=== PATIENT | male | born 1950 | race Caucasian/White ===

== ENCOUNTER → 2020-09-13 09:15 | Outpatient (BNVA) | payer MEDICARE, SELFPAY | PROVIDERS: PCP Internal Medicine; Referring Provider Internal Medicine; Visit Provider Urology | DX: E29.1 Testicular hypofunction (principal); M85.80 Other specified disorders of bone density and structure, unspecified site; C61 Malignant neoplasm of prostate | CPT/HCPCS: 99212; Q3014 ==

== ENCOUNTER → 2021-03-27 11:13 | Outpatient (BNVA) | payer MEDICARE, SELFPAY | PROVIDERS: PCP Internal Medicine; Visit Provider Urology | DX: M85.80 Other specified disorders of bone density and structure, unspecified site (principal); C61 Malignant neoplasm of prostate; E29.1 Testicular hypofunction | CPT/HCPCS: Q3014 ==

== ENCOUNTER → 2021-12-11 13:39 | Outpatient (BNVA) | payer MEDICARE, SELFPAY | PROVIDERS: PCP Internal Medicine; Visit Provider Urology | DX: C61 Malignant neoplasm of prostate (principal); M85.80 Other specified disorders of bone density and structure, unspecified site; E29.1 Testicular hypofunction | CPT/HCPCS: Q3014 ==

== ENCOUNTER → 2022-06-14 14:41 | Outpatient (BNVA) | payer MEDICARE, SELFPAY | PROVIDERS: PCP Internal Medicine; Visit Provider Urology | DX: C61 Malignant neoplasm of prostate (principal); E29.1 Testicular hypofunction; N52.9 Male erectile dysfunction, unspecified; M85.80 Other specified disorders of bone density and structure, unspecified site; I10 Essential (primary) hypertension | CPT/HCPCS: 99212 ==

== ENCOUNTER → 2022-12-17 11:06 | Outpatient (BNVA) | payer MEDICARE, SELFPAY | PROVIDERS: PCP Internal Medicine; Visit Provider Urology | DX: C61 Malignant neoplasm of prostate (principal); E29.1 Testicular hypofunction | CPT/HCPCS: Q3014 ==

== ENCOUNTER 2023-07-17 13:50 | Outpatient (AMB) | payer MEDICARE, SELFPAY ==
--- NOTE | 2023-07-17 13:54 | MHC.OFFVIS ---
Intake Intake Visit Reasons: 6m/PSA(set) Intake Note: Patient is Present for Telephone Follow Up PSA Urology Med: None Antibiotic Allergy: None Blood Thinner: Eliquis Allergies No Known Allergies Allergy (Verified 07/17/23 13:55) Medication List - Last Reconciled 07/17/23 by Kwaku Rodríguez MD albuterol sulfate 90 mcg/actuation 0 mcg inhalation amlodipine 2.5 mg PO DAILY amlodipine 5 mg PO DAILY amlodipine 10 mg PO DAILY apixaban (Eliquis) 5 mg PO BID apixaban (Eliquis) 2.5 mg PO BID atorvastatin 20 mg PO DAILY dorzolamide-timolol 22.3-6.8 mg/mL 1 drp ophthalmic (eye) BID furosemide 40 mg PO DAILY hydrochlorothiazide 25 mg PO DAILY lisinopril 20 mg PO DAILY lisinopril-hydrochlorothiazide 20-25 mg 1 tab PO DAILY metoprolol succinate ER 100 mg PO DAILY travoprost 0.004% 1 drp ophthalmic (eye) BEDTIME HPI HPI Comments History of Present Illness Details Venkatesh Bee is a very pleasant male. He is a patient of Dr. Cota. He is seen for the following urologic issues. -Prostate cancer -Erectile dysfunction -Gynecomastia Telemedicine Evaluation 15 min Consultation Doximity Etelvina Video attempted Had episode of discolored urination. Improved with hydration PSA remaining undetectable Will move to yearly evaluation Prostate cancer: Roshan 6, prostatectomy 2000, rising PSA 2016 intermittent hormones Prostate cancer was diagnosed 2000. Diagnosis was reached by needle biopsy, for elevated PSA. The [place] grade is 3+3 = 6 TNM Classification of Malignant Tumours (TNM) T1c. The D'Melissa (NCCN) risk category is Low Risk (PSA< 10, Gl < 7, T1c). Initial therapy included Primary treatment, Prostatectomy (RRP/Robotic), Additional treatment, Observation, Additional treatment, Hormonal Blockade - Continuous 2011 Additional treatment, Jul 2015 - Hormonal Blockade - Intermittent Therapy for metastatic/CRPC included GnRH agonist Recent labs included October 2015 a PSA 0.3, a testosterone, < 20 ng/dL, Jan 2016 , a PSA < 0.1, a testosterone, < 20 ng/dL, May 2016 , a PSA , < 0.1, a testosterone, < 20 ng/dL, Sep 2016 , a PSA , < 0.1, a testosterone 20 Mar 2017, , a PSA , < 0.1, a testosterone 28 08/10 , a PSA (prostate-specific antigen), < 0.1, a testosterone 49, 02/07 , a PSA (prostate-specific antigen), < 0.1, T 54, 08/11 , a PSA (prostate-specific antigen), < 0.1, T 49, 01/08 , a PSA (prostate-specific antigen) < 0.1, T 72 08/12 < 0.1, T 60, 02/09 < 0.1, T 65, 09/10 <0.1, T 72, 03/13 <0.1, 12/12 <0.1, 06/13 <0.1, 12/13 <0.1, 06/14 <0.1 Recent imaging included October 2015 , a DEXA scan, showing osteopenia/osteoporosis 12/09 DEXA - osteopenia, DEXA 02/10 - no osteopenia Associated conditions erectile dysfunction Yes Therapeutic plan: Continue with surveillance imaging and labs [facility] Medical History Melanoma Glaucoma OA (osteoarthritis) Osteopenia HTN (hypertension) Hypogonadism male Erectile dysfunction Prostate cancer Surgical History History of colonoscopy History of left hip replacement Review of Systems Const All systems reviewed & are unremarkable except as noted in HPI and below Reports no additional complaints Resp Reports no additional complaints GI Reports no additional complaints Reports as per HPI Musc Reports no additional complaints Physical Exam Telemedicine evaluation Appropriate responses Regular breathing rate and rhythm HEENT Head: Yes normal to inspection Ears: hearing grossly normal bilaterally Eyes General: appearance normal, both eyes and all related structures Neck Neck: Yes normal visual inspection Chest Chest palpation & inspection: normal inspection of the chest Resp Effort & Inspection: normal respiratory effort and able to speak in complete sentences Assessment & Plan Assessment & Plan (1) Prostate cancer: Code(s): C61 - Malignant neoplasm of prostate (2) Hypogonadism male: Code(s): E29.1 - Testicular hypofunction Plan Twelve month follow-up Orders: Orders Prostate Specific Antigen 364 Days C61 - Malignant neoplasm of prostate Patient Instructions: Imaging studies, laboratory and physical exam results were discussed and reviewed in detail. No major barriers to patient understanding were identified. An opportunity to ask questions regarding the treatment plan was provided. All questions were answered. The patient expressed understanding and agreement with the above treatment plan. The patient is aware they should contact our office by phone for worsening of their current condition or the appearance of new urologic symptoms. Compliance is encouraged with any medications and followup testing that is ordered. It is a privilege to participate in the urologic care of your patient. If you have any questions or concerns regarding treatment for the above conditions, or other urologic issues, please do not hesitate to contact me. The office telephone contact is [phone]. This note is constructed using voice recognition software. While every effort has been made to ensure accuracy transcription coordinator errors may have been included. Yours sincerely, Dr Kwaku Rodríguez MD, [facility] - Urology Providers of Expert, Compassionate Care for the Genitourinary System Telehealth Telehealth Location of provider rendering services: practice address Location of patient: address on file Patient Identification confirmed using: Name, : Yes Telehealth method: video Patient verbally consented to treatment: Yes Patient verbally consented to billing insurance company: Yes Patient informed of any privacy concerns related to visit: Yes Coding Level of Care Code Tele Est Pt Level 4 (92685) Diagnoses Prostate cancer C61 Hypogonadism male E29.1
== END 2023-07-17 15:07 | disposition home or self-care (01) ==
LOC: HO.HUSH 13:50
PROVIDERS: PCP Internal Medicine; Visit Provider Urology
DX: C61 Malignant neoplasm of prostate (principal); E29.1 Testicular hypofunction
CPT/HCPCS: 99213

== ENCOUNTER → 2023-07-17 13:50 | Outpatient (BNVA) | payer MEDICARE, SELFPAY | PROVIDERS: PCP Internal Medicine; Visit Provider Urology ==

== ENCOUNTER 2024-07-13 09:06 | Outpatient (AMB) | payer MEDICARE, SELFPAY ==
--- NOTE | 2024-07-13 09:11 | A.OFFVIS_ITS ---
Intake Visit Reasons: 1Y PSA(Set) Intake Note: Patient is Present for 1Y Follow Up PSA Urology Med: None Antibiotic Allergy: None Blood Thinner: [email or web address] Techn[employer] Required: No Allergies No Known Allergies Allergy (Verified 07/13/24 09:11) HPI Comments Details: Venkatesh Bee is a very pleasant male. He is a patient of Dr. Cota. He is seen for the following urologic issues. -Prostate cancer -Erectile dysfunction -Gynecomastia Yearly evaluation On Eliquis PSA stable No repeat of hematuria Prostate cancer: Roshan 6, prostatectomy 2000, rising PSA 2015 intermittent hormones Prostate cancer was diagnosed 2000. Diagnosis was reached by needle biopsy, for elevated PSA. The [place] grade is 3+3 = 6 TNM Classification of Malignant Tumours (TNM) T1c. The D'Melissa (NCCN) risk category is Low Risk (PSA< 10, Gl < 7, T1c). Initial therapy included Primary treatment, Prostatectomy (RRP/Robotic), Additional treatment, Observation, Additional treatment, Hormonal Blockade - Continuous 2011 Additional treatment, Jul 2015 - Hormonal Blockade - Intermittent Therapy for metastatic/CRPC included GnRH agonist Recent labs included October 2015 a PSA 0.3, a testosterone, < 20 ng/dL, Jan 2016 , a PSA < 0.1, a testosterone, < 20 ng/dL, May 2016 , a PSA , < 0.1, a testosterone, < 20 ng/dL, Sep 2016 , a PSA , < 0.1, a testosterone 20 Mar 2017, , a PSA , < 0.1, a testosterone 28 08/10 , a PSA (prostate-specific antigen), < 0.1, a testosterone 49, 8 , a PSA (prostate-specific antigen), < 0.1, T 54, 2 , a PSA (prostate- specific antigen), < 0.1, T 49, 7 , a PSA (prostate-specific antigen) < 0.1, T 72 2 < 0.1, T 60, 8 < 0.1, T 65, 09/10 <0.1, T 72, 03/13 <0.1, 12/12 <0.1, 06/13 <0.1, 12/13 <0.1, 06/14 <0.1, 06/15 <0.1 Recent imaging included October 2015 , a DEXA scan, showing osteopenia/osteoporosis 12/09 DEXA - osteopenia, DEXA 02/10 - no osteopenia Associated conditions erectile dysfunction Yes Therapeutic plan: Continue with surveillance imaging and labs [facility] Medical History Melanoma Glaucoma OA (osteoarthritis) Osteopenia HTN (hypertension) Hypogonadism male Erectile dysfunction Prostate cancer Surgical History History of colonoscopy History of left hip replacement Review of Systems Const Denies chills and Denies fever(s) Card Reports no additional complaints and Denies syncope Resp Denies cough GI Denies abdominal pain and Denies heartburn Reports as per HPI and Denies change in libido Neuro Denies syncope Psych Denies change in libido Endo Denies change in libido Physical Exam Const General: cooperative, healthy appearing, comfortable and no acute distress Orientation/consciousness: patient oriented x3 HEENT Face and sinus: Yes normal facial exam Mouth: moist mucous membranes Neck Neck: Yes normal visual inspection, Yes full ROM and Yes trachea midline Chest Chest palpation & inspection: normal inspection of the chest Resp Effort & Inspection: normal respiratory effort, able to speak in complete sentences and no respiratory distress GI Inspection: Yes normal to inspection Back/Spine/Pelvis Cervical Spine: normal cervical lordosis Thoracic/Lumbar Spine: thoracic and lumbar spine normal to inspection Skin General skin exam: no rashes or lesions noted Neuro General: patient oriented x3, gait normal, tone normal and moves all extremities Extrem General: Yes normal to inspection and Yes capillary refill normal Assessment & Plan Assessment & Plan (1) Prostate cancer: Code(s): C61 - Malignant neoplasm of prostate Category: Medical (2) Hypogonadism male: Code(s): E29.1 - Testicular hypofunction Category: Medical (3) Osteopenia: Code(s): M85.80 - Other specified disorders of bone density and structure, unspecified site Category: Medical Plan Twelve month follow-up G Code G2211 Has been applied in accordance with CMS guidelines ( Medicare and Medicaid programs; 2023 Payment Policies ) to convey the inherent complexity in ongoing patient care within the urology clinic. This deliberate utilization aligns with the visits complexity associated with medical care services serving as a focal point for necessary healthcare, addressing the patient's singular serious or complex condition. This judicious use ensure was appropriate reimbursement, especially in the context of managing such conditions within our specialized, longitudinal urologic practice. This patient has a complex and chronic urologic condition that requires longitudinal follow-up. [facility], Medicare and Medicaid programs; 2023 Payment Policies Fed. Reg 88 (91): [id number] (Jan.272022) Orders: Orders Prostate Specific Antigen 364 Days C61 - Malignant neoplasm of prostate Patient Instructions: Imaging studies, laboratory and physical exam results were discussed and reviewed in detail. No major barriers to patient understanding were identified. An opportunity to ask questions regarding the treatment plan was provided. All questions were answered. The patient expressed understanding and agreement with the above treatment plan. The patient is aware they should contact our office by phone for worsening of their current condition or the appearance of new urologic symptoms. Compliance is encouraged with any medications and followup testing that is ordered. It is a privilege to participate in the urologic care of your patient. If you have any questions or concerns regarding treatment for the above conditions, or other urologic issues, please do not hesitate to contact me. The office telephone contact is [phone]. This note is constructed using voice recognition software. While every effort has been made to ensure accuracy principal java developer errors may have been included. Yours sincerely, Dr Kwaku Rodríguez MD, [facility] - Urology Providers of Expert, Compassionate Care for the Genitourinary System Coding Level of Care Code Est Pt Level 4 (21479) Complex EM visit Add On G2211 Diagnoses Prostate cancer C61 Hypogonadism male E29.1 Osteopenia M85.80
--- OUTSIDE RECORDS SUMMARY | 2024-07-13 09:38 | XMS_ITS | Continuity of Care Document ---
Author Organization [facility], Main Office Address [address] [facility] [address] [place] [address] Care Team Providers Care Treating Inspector Name Role Phone NAREN COTA Primary Care Provider LINDA MALIK Ruby [employer] Rails Software Developer CAROLYNN MURPHY Urologist ALEX VIDAL Medical Oncologist [phone] JACKY TINEO Criminal Psychologist CAROLYNN CHOU Orthopedic Surgeon [phone] ROMANA AJ Aging Room Hand ANAI GUZMAN Customer Retention Representative PK PRADHAN Cultural Centre Manager Assessment No assessment recorded. Plan of Treatment Reminders Order Date Submit Date Provider Last Modified By Organization Details Last Modified Time Details Appointments AWV30 2024 09:15A M Naren galindo MD Not available Not available Not available Lab CMP, serum or plasma 2023 024 [place], [address] [facility], [facility] [address], [place], [address], 06/04/2024 06:08:29 Referral None recorde d. Procedures None recorde d. Surgeries None recorde d. Imaging None recorde d. Medication Orders metopro lol succina te ER 100 mg tablet, extende d release 24 hr 2023 024 [id number], [address] [facility], [place], [address], 06/03/2024 09:03:17 amlodip ine 10 mg-vals romulo 320 mg tablet 2023 024 gina [facility], [address] [place], [address], 06/03/2024 09:03:17 Patient TargetsNo targets recorded. Patient Instructions Encounter Date Encounter Id Patient Instructions Last Modified By Organization Details Last Modified Time 06/03/2024 [id number] high cholesterol: care instructions gina Not available 06/03/2024 09:14:58 Reason for Referral None Reported. Problems Name Problem SNOMED Code Status Onset Date Resolution Date Notes Provider Name and Address Organization Details Recorded Time Electroc kydiogra m abnormal [id number] Completed 201301/11/2014 RECORDED 08/11/19 14 8:51AM BY ЮЛИЯ RENEE ON/STANISLAW galindo MD [address] [address], [place], [address], [facility] 6 09:56:10 Patient status finding [id number] Completed 201304/18/2014 RECORDED 10/15/19 14 9:33AM BY JERRICA ESPINAL I, OFFICE VISIT Naren galindo MD [address] [place], [address], [facility] 6 09:56:10 Neck pain 42744323 Completed 200801/11/2014 RECORDED 03/21/20 09 8:59AM BY ЮЛИЯ AGUIRRE ON/STANISLAW galindo MD [address] [place], [address], [facility] 6 09:56:10 Walking disabili ty 265016041 Completed 201301/11/2014 RECORDED 10/15/19 14 9:31AM BY ЮЛИЯ RENEE ON/STANISLAW galindo MD [address] [place], [address], [facility] 6 09:56:10 Impotenc e of organic origin Active PHUONG Garvin, [facility] 1 16:03:52 History of Malignan t melanoma 817894905 Active 1994 back of neck; sees derm PHUONG Garvin, [facility] 1 16:03:52 History of malignan t neoplasm of prostate 518868310 Active 2001 [place], stage 3. radical prostate ctomy in 2001 then monitori ng and increasi ng PSA led to hormone therapy in 2014. PHUONG Garvin, [facility] 1 16:03:52 Pure hypercho lesterol emia 530225236 Completed 10/21/2016 on a statin Naren galindo MD [address] [address], [place], [address], [facility] 7 10:13:08 Hypercho lesterol emia 38896061 Completed 200901/11/2014 RECORDED 09/22/19 10 9:28AM BY EDWARDO NGUYEN MA, ANNOTATI ON/ADDEN DUM Naren galindo MD [address] [address], [place], [address], [facility] 6 09:56:10 Essentia l hyperten ashley 98601847 Completed 200901/11/2014 RECORDED 09/22/19 10 9:29AM BY EDWARDO NGUYEN MA, ANNOTATI ON/ADDEN DUM [facility] 3 18:19:11 Hypokale mustapha 27508058 Active 2020 PHUONG Garvin, [facility] 1 16:03:52 Laborato ry procedur e performe d 838858909 Completed 201301/11/2014 RECORDED 10/15/19 14 9:31AM BY ЮЛИЯ RENEE ON/STANISLAW galindo MD [address] [facility] [address], [place], [address], [facility] 6 09:56:10 Pain in limb 76105425 Completed 201101/11/2014 RECORDED 04/08/20 12 8:57AM BY ЮЛИЯ RENEE ON/STANISLAW galindo MD [address] [facility] [address], [place], [address], [facility] 6 09:56:10 Localize d superfic ial swelling of skin 866328083 Completed 200801/11/2014 RECORDED 03/21/20 09 9:00AM BY ЮЛИЯ AGUIRRE ON/STANISLAW galindo MD [address] [facility] [address], [place], [address], [facility] 6 09:56:10 Renewal of prescrip tion Completed 201201/11/2014 RECORDED 10/13/19 13 9:34AM BY ЮЛИЯ RENEE ON/STANISLAW galindo MD [address] [facility] [address], [place], [address], [facility] 6 09:56:10 Fibromyo sitis 49032469 Completed 200801/11/2014 RECORDED 03/21/20 09 8:59AM BY ЮЛИЯ AGUIRRE/STANISLAW galindo MD [address] [facility] [address], [place], [address], [facility] 6 09:56:10 Influenz a vaccine needed 04018705454 06 Completed 201001/11/2014 RECORDED 04/10/20 11 8:41AM BY JERRICA ESPINAL I, OFFICE VISIT Naren galindo MD [address] [facility] [address], [facility] [place], [address], [facility] 6 09:56:10 Disorder of bone and articula r cartilag e 737522104 Active Francy Murillo [place] null, [facility] 1 16:03:52 Immuniza tion refused Completed 201301/11/2014 RECORDED 08/11/19 14 8:51AM BY JERRICA ESPINAL I, ANNOTATI ON/ADDEN DUM Naren galindo MD [address] [facility] [address], [place], [address], [facility] 6 09:56:10 Pre-surg ino evaluati on Completed 201301/11/2014 IMPRESSI ON: HE IS W/O CARDIAC SYMPTOMS BUT HE HAS BEEN UNABLE TO EXERT HIMSELF BECAUSE OF HIS HIP PAIN SO WE WILL GET A NUCLEAR STRESS TEST TO R/O ISCHEMIA BEFORE CLEARING HIM FOR SURGERY. ; RECORDED 08/31/19 14 12:59PM BY DEWAYNE BOX MA, HOMEROATI ON/STANISLAW galindo MD [address] [facility] [address], [place], [address], [facility] 6 09:56:10 Adult health examinat ion Completed 201304/18/2014 RECORDED 10/15/19 14 9:32AM BY JERRICA ESPINAL I, OFFICE VISIT Naren galindo MD [address] [facility] [address], [place], [address], [facility] 6 09:56:10 Adult health examinat ion Completed 201101/11/2014 RECORDED 04/08/20 12 8:57AM BY JERRICA ESPINAL I ANNOTATI ON/STANISLAW galindo MD [address] [address], [place], [address], [facility] 6 09:56:10 Screenin g for malignan t neoplasm of colon Completed 200801/11/2014 RECORDED 09/09/19 09 8:31AM BY ЮЛИЯ BROCK ON/STANISLAW galindo MD [address], [place], [address], [facility] 6 09:56:10 Electroc ardiogra m abnormal [id number] Completed 201301/31/2014 RECORDED 08/11/19 14 8:51AM BY ЮЛИЯ RENEE ON/STANISLAW galindo MD [address], [place], [address], [facility] 6 09:56:10 Neck pain 00434090 Completed 200801/31/2014 RECORDED 03/21/20 09 8:59AM BY ЮЛИЯ AGUIRRE ON/STANISLAW galindo MD [address] [facility] [address], [place], [address], [facility] 6 09:56:10 Walking disabili ty 567535079 Completed 201301/31/2014 RECORDED 10/15/19 14 9:31AM BY ЮЛИЯ RENEE ON/STANISLAW galindo MD [address], [place], [address], [facility] 6 09:56:10 Hypercho lesterol emia 75214188 Completed 200901/31/2014 RECORDED 09/22/19 10 9:28AM BY EDWARDO NGUYEN MA, ЮЛИЯ ON/STANISLAW galindo MD [address] [facility] [address], [place], [address], [facility] 6 09:56:10 Laborato ry procedur e performe d 884636378 Completed 201301/31/2014 RECORDED 10/15/19 14 9:31AM BY ЮЛИЯ RENEE ON/STANISLAW galindo MD [address] [facility] [address], [place], [address], [facility] 6 09:56:10 Pain in limb 98968298 Completed 201101/31/2014 RECORDED 04/08/20 12 8:57AM BY ЮЛИЯ RENEE ON/STANISLAW galindo MD [address] [facility] [address], [place], [address], [facility] 6 09:56:10 Localize d superfic ial swelling of skin 049293901 Completed 200801/31/2014 RECORDED 03/21/20 09 9:00AM BY ЮЛИЯ AGUIRRE ON/STANISLAW galindo MD [address] [facility] [address], [place], [address], [facility] 6 09:56:10 Renewal of prescrip tion Completed 201201/31/2014 RECORDED 10/13/19 13 9:34AM BY ЮЛИЯ RENEE/STANISLAW galindo MD [address] [facility] [address], [place], [address], [facility] 6 09:56:10 Fibromyo sitis 65273700 Completed 200801/31/2014 RECORDED 03/21/20 09 8:59AM BY ЮЛИЯ AGUIRRE ON/STANISLAW galindo MD [address] [facility] [address], [place], [address], [facility] 6 09:56:10 Influenz a vaccine needed 20463191883 06 Completed 201001/31/2014 RECORDED 04/10/20 11 8:41AM BY JERRICA ESPINAL I, OFFICE VISIT Naren galindo MD [address], [place], [address], [facility] 6 09:56:10 Immuniza tion refused Completed 201301/31/2014 RECORDED 08/11/19 14 8:51AM BY JERRICA ESPINAL I, HOMEROATI ON/ADDEN DUM Naren galindo MD [address], [place], [address], [facility] 6 09:56:10 Pre-surg ino evaluati on Completed 201301/31/2014 IMPRESSI ON: HE IS W/O CARDIAC SYMPTOMS BUT HE HAS BEEN UNABLE TO EXERT HIMSELF BECAUSE OF HIS HIP PAIN SO WE WILL GET A NUCLEAR STRESS TEST TO R/O ISCHEMIA BEFORE CLEARING HIM FOR SURGERY. ; RECORDED 08/31/19 14 12:59PM BY DEWAYNE BOX MA, ЮЛИЯ ON/STANISLAW galindo MD [address], [place], [address], [facility] 6 09:56:10 Screenin g for malignan t neoplasm of colon Completed 200801/31/2014 RECORDED 09/09/19 09 8:31AM BY ЮЛИЯ BROCK ON/STANISLAW galindo MD [address], [place], [address], [facility] 6 09:56:10 Glaucoma 84632805 Active using drops PHUONG Garvin, [facility] 1 16:03:52 Advance directiv e discusse d with patient 447337739 Active PHUONG Garvin, [facility] 1 16:03:52 Morbid obesity 081267561 Active PHUONG Garvin, [facility] 1 16:03:52 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 PHUONG Garvin, [facility] 1 16:03:52 Hyperlip idemia 32794318 Active 2016 Naren galindo MD [address] [facility] [address], [place], [address], [facility] 7 10:13:33 Gout 51065538 Active 2016 Naren galindo MD [address] [facility] [address], [place], [address], [facility] 7 09:51:45 Osteopen ia 587378977 Active 2018 PHUONG Garvin, [facility] 1 16:03:52 Pain in right hip joint 26754894535 9102 Active 2019 Seen by ortho. Has advanced OA but no change in quality of life. No surgery for now. PHUONG Garvin, [facility] 1 16:03:52 Basal cell carcinom a of skin 007798780 Active 2019 Followed by CARINA Arellano. Naren galindo MD [address] [facility] [address], [place], [address], [facility] 3 13:06:21 Arthriti s of right hip 43414647111 [address] Active 2019 PHUONG Garvin, [facility] 1 16:03:52 Blood in urine 42727222 Active 2019 PHUONG Garvin, [facility] 1 16:03:52 Hyperten sive renal disease 76813217 Active 2020 Colten Garcia PA-C [address] [facility] [address], [place], [address], [facility] 1 13:43:49 Pulmonar y embolism 99789267 Active 2020 Francy Murillo [place] null, [facility] 1 16:03:52 Edema of lower extremit y 206528828 Active 2020 Francy Murillo [place] null, [facility] 1 16:03:52 Congesti ve heart failure 37827841 Active 2020 Colten Garcia PA-C [address], [place], [address], [facility] 1 13:39:26 Exposure to SARS-CoV -2 Completed 11/14/2020 Removal Reason: Problem added by user dinah kapadia from the COVID-19 watch flag Naren galindo MD [address], [place], [address], [facility] 1 10:12:53 Surveill ance: remote electron ic Active 2021 [facility] SIERRA Mace [address], [place], [address], [facility] 2 08:29:18 Deep venous thrombos is 036910095 Active 2020 Naren galindo MD [address], [place], [address], [facility] 2 08:49:44 Cardiomy opathy 38878801 Active 2021 apical hypertro pic not affectin g EF; followed by cardiolo gy. Children recommen ded to get ECHO's done. Naren galindo MD [address], [place], [address], [facility] 2 08:51:01 Chronic kidney disease stage 2 067473342 Active 2022 Adore Lopezyayo smallwood [facility] 11:24:30 Problem Notes None recorded. Procedures Surgical History Date Name Laterality Status Provider Name and Address Organization Details Recorded Time 12/04/19 24 Advanced Care Planning completed Naren Cota MD [address] [facility] [address], [place], [address], [facility] 12/04/2023 13:08:25 11/21/19 23 Advanced Care Planning completed Naren Cota MD [address] [facility] [address], [place], [address], [facility] 11/20/2022 11:05:40 10/09/19 23 Colonoscopy completed Hailey Leonard [facility] 10/11/2022 14:16:32 09/27/19 22 prosthetic arthroplasty of hip completed Shannon Dunham RN [facility] 09/27/2021 10:52:19 11/15/19 21 Six-Item Cognitive Test completed Francy Murillo MA [facility] 11/14/2020 09:24:43 11/11/19 20 Mini-Cog Test completed Jerrica Villanueva [facility] 11/11/2019 09:22:00 10/30/19 19 Mini-Cog Test completed Jerrica Villanueva [facility] 10/29/2018 09:08:08 10/29/19 18 Mini-Cog Test completed Jerrica Villanueva [facility] 10/28/2017 10:36:20 10/22/19 17 Fall Risk Assessment completed Jerrica Villanueva [facility] 10/21/2016 09:42:13 10/22/19 17 Mini-Cog Test completed Jerrica Villanueva [facility] 10/21/2016 09:42:20 10/19/19 16 Fall Risk Assessment completed Jerrica Villanueva [facility] 10/19/2015 09:36:08 10/19/19 16 Mini-Cog Test completed Jerrica Villanueva [facility] 10/19/2015 09:36:08 10/19/19 16 Advanced Care Planning completed Jerrica Villanueva [facility] 10/19/2015 09:27:17 10/18/19 15 Fall Risk Assessment completed Jerrica Brownanca [facility] 10/17/2014 11:11:13 10/18/19 15 Mini-Cog Test completed Jerrica Villanueva [facility] 10/17/2014 11:11:13 08/17/19 14 Joint Replacement completed Naren Cota MD [address] [facility] [address] [facility] [place], [place], [address], [facility] 11/20/2022 09:51:16 06/23/19 02 Prostate Surgery completed Naren Cota MD [address] [address], [place], [address], [facility] 04/18/2014 09:30:43 06/23/18 91 Other completed Naren Cota MD [address] [facility] [address] [facility] [place] [facility], [place], [address], [facility] 04/18/2014 09:32:14 Imaging Results None recorded. Procedure Notes None recorded. Medical Equipment None Reported. Allergies Allergen ID Allergen Name Allergen Category Reaction Reaction Severity Criticality Documentation Date Start Date Code Code System Note Provider Name and Address Organization Details Recorded Time 44408 lisinopri l medicatio n cough moderate Not available 09/11/20202020 54651 RxNorm PHUONG Kwong, [facility] 2 09:35:47 Medications Name Sig Start Date Stop Date Status Note LastModified by Organization Details LastModified Time travatan z 0.004 % soln 01/18 completed Not Available Not Available Not Available travopros t 0.004 % soln 01/18 completed Not Available Not Available Not Available shingrix 50 mcg/0.5ml susr 01/18 completed Not Available Not Available Not Available metoprolo l succinate er 100 mg tb24 01/18 completed Not Available Not Available Not Available lisinopri l 20 mg tabs 12/05 completed duplicat e Not Available Not Available Not Available metoprolo l succinate er 50 mg tb24 01/18 completed Not Available Not Available Not Available amoxicill in 500 mg caps 01/18 completed Not Available Not Available Not Available atorvasta tin calcium 20 mg tabs 01/18 completed Not Available Not Available Not Available dorzol/ti mol lori 22.3-6.8 01/18 completed Not Available Not Available Not Available lisinop/h ctz tab 20-25mg 01/18 completed Not Available Not Available Not Available celecoxib 200 mg capsule TAKE ONE CAPSULE BY MOUTH EVERY DAY 11/15 completed Not Available Not Available Not Available amoxicill in 500 mg capsule TAKE 4 CAPSULES 1 HOUR BEFORE PROCEDUR E 11/15 completed Not Available Not Available Not Available metolazon e 2.5 mg tablet TAKE ONE TABLET BY MOUTH EVERY OTHER DAY NEEDED 10/05 completed Not Available Not Available Not Available bicalutam mary 50 mg tablet DAILY AT BEDTIME active Not Available Not Available No t Available atorvasta tin 20 mg tablet TAKE ONE TABLET BY MOUTH EVERY DAY active Not Available Not Available No t Available pravastat in 40 mg tablet QD 2007 active RECORDED 03/14/20 08 9:59AM BY NAREN REESE MD, ANNOTATI ON/STANISLAW HASTINGS; Not Available Not Available Not Available metoprolo l succinate ER 50 mg tablet,ex tended release 24 hr TAKE ONE TABLET BY MOUTH EVERY DAY 05/03 completed Not Available Not Available Not Available lisinopri l 20 mg tablet Take 1 tablet every day by oral route for 90 days. 09/11 completed Not Available Not Available Not Available metoprolo l succinate ER 100 mg tablet,ex tended release 24 hr TAKE ONE TABLET BY MOUTH EVERY DAY 2024 active Not Available Not Available Not Avai lable atenolol 50 mg-chlort halidone 25 mg tablet TAKE ONE TABLET(S ) EVERY DAY BY MOUTH 04/28 completed Not Available Not Available Not Available travopros t 0.004 % eye drops INSTILL 1 DROP INTO BOTH EYES ONCE DAILY AT BEDTIME DIRECTED active Not Available Not Available No t Available amlodipin e 2.5 mg tablet TAKE ONE TABLET BY MOUTH EVERY DAY AT BEDTIME 03/19 completed Not Available Not Available Not Available amlodipin e 5 mg tablet TAKE ONE TABLET BY MOUTH EVERY DAY DIRECTED 03/19 completed Not Available Not Available Not Available allopurin ol 100 mg tablet Take 3 tablets every day by oral route for 90 days. 04/28 completed Not Available Not Available Not Available fondapari nux 2.5 mg/0.5 mL subcutane ous solution syringe 10/18 completed Not Available Not Available Not Available peg-elect rolyte solution 420 gram oral solution MIX POWDER WITH WATER ACCORDIN G TO THE PRODUCT LABEL. FOLLOW THE [facility] INSTRUCT IONS STATING WHEN TO DRINK THE PREP FLUID ON THE EVENING B 11/20 completed Not Available Not Available Not Available tramadol 50 mg tablet TAKE 1 TO 2 TABLETS BY MOUTH EVERY 6 HOURS NEEDED FOR MILD PAIN 11/15 completed Not Available Not Available Not Available amoxicill in 500 mg tablet TAKE 4 TABLETS BY MOUTH 1 HOUR BEFORE APPOINTM ENT active Not Available Not Available No t Available oxycodone -acetamin ophen 5 mg-325 mg tablet EVERY FOUR HOURS NEEDED active Not Available Not Available No t Available amoxicill in 875 mg tablet 10/29 completed Not Available Not Available Not Available amlodipin e 10 mg tablet TAKE ONE TABLET BY MOUTH EVERY DAY 06/03 completed Not Available Not Available Not Available cephalexi n 500 mg capsule TAKE ONE CAPSULE BY MOUTH THREE TIMES A DAY FOR 7 DAYS 07/03 completed Not Available Not Available Not Available pantopraz ole 40 mg tablet,de layed release TAKE ONE TABLET BY MOUTH EVERY DAY 11/15 completed Not Available Not Available Not Available simvastat in 20 mg tablet 2007 active RECORDED 12/10/19 08 8:29AM BY NAREN REESE MD, ANNOTATI ON/STANISLAW DUM; Not Available Not Available Not Available erythromy yeimi 5 mg/gram (0.5 %) eye ointment APPLY 1/2 INCH OF OINTMENT TO AFFECTED EYE 4 TIMES DAILY FOR 7 DAYS 07/03 completed Not Available Not Available Not Available Pravachol 20 mg tablet DAILY 12/09 completed RECORDED 12/10/19 08 8:43AM BY EDWARDO I KELLY- WENDY, MA, OFFICE VISIT;NO T TAKING DUE TO MUSCLE ACHES Not Available Not Available Not Available calcium 200 mg (as calcium carbonate 500 mg) chewable tablet DAILY 11/25 completed Not Available Not Available Not Available indometha yeimi 50 mg capsule Take 1 capsule 3 times a day by oral route with meals for 10 days. 12/10 completed Not Available Not Available Not Available hydrochlo rothiazid e 12.5 mg capsule TAKE ONE CAPSULE BY MOUTH EVERY DAY DIRECTED 08/29 completed increase d his dose. Not Available Not Available Not Available betametha sone dipropion ate 0.05 % topical cream APPLY SPARINGL Y TO ECZEMA RASH ON LEG TWO TIMES A DAY FOR 1-2 WEEKS active Not Available Not Available No t Available docusate sodium 100 mg capsule TAKE ONE CAPSULE BY MOUTH TWICE A DAY (TO BE STARTED AFTER SURGERY) 05/21 completed Not Available Not Available Not Available lisinopri l 20 mg-hydroc hlorothia zide 25 mg tablet Take 1 tablet every day by oral route for 90 days. 09/11 completed Not Available Not Available Not Available dorzolami de 22.3 mg-timolo l 6.8 mg/mL eye drops INSTILL ONE DROP INTO BOTH EYES TWO TIMES A DAY active Not Available Not Available No t Available hydrochlo rothiazid e 25 mg tablet TAKE ONE TABLET BY MOUTH EVERY DAY 06/03 completed Not Available Not Available Not Available furosemid e 20 mg tablet TAKE TWO TABLETS BY MOUTH EVERY DAY NEEDED 05/21 completed Not Available Not Available Not Available albuterol sulfate HFA 90 mcg/actua tion aerosol inhaler INHALE TWO PUFFS BY MOUTH EVERY 4 HOURS NEEDED active Not Available Not Available No t Available oxycodone 5 mg tablet TAKE 1 TO 2 TABLETS BY MOUTH EVERY 4 HOURS NEEDED FOR MODERATE PAIN 11/15 completed Not Available Not Available Not Available cholecalc iferol (vitamin D3) 25 mcg (1,000 unit) capsule Take 1 capsule every day by oral route. active Not Available Not Available No t Available Klor-Con M20 mEq tablet,ex tended release active Not Available Not Available Not Available Calcium-5 00 500 mg (as calcium carbonate 1,250 mg) chewable tablet Take 1 tablet every day by oral route. active Not Available Not Available No t Available Cosopt Ocumeter Plus TWO TIMES DAILY 10/18 completed RECORDED 10/15/19 14 9:32AM BY JERRICA ESPINAL I, OFFICE VISIT; Not Available Not Available Not Available Arixtra DAILY 2013 active RECORDED 10/15/19 14 9:32AM BY JERRICA ESPINAL I, OFFICE VISIT;CA ESCRIBED S/P HIP REPLACEM ENT - ORTHO TO FOLLOW Not Available Not Available Not Available Zostavax (PF) 19,400 unit/0.65 mL subcutane ous suspensio n active Not Available Not Available Not Available fenofibra te nanocryst allized 145 mg tablet DAILY TO TREAT HYPERCHO LESTEROL EMIA 06/30 completed RECORDED 06/30/19 13 8:25AM BY NAREN REESE MD, ANNOTATI ON/ADDEN DUM; Not Available Not Available Not Available amlodipin e 5 mg-valsar pineda 160 mg tablet TAKE ONE TABLET BY MOUTH EVERY DAY 06/03 completed Not Available Not Available Not Available amlodipin e 10 mg-valsar pineda 320 mg tablet Take 1 tablet every day by oral route for 90 days, for HTN. 2023 active Not Available Not Available Not Avai lable GaviLyte- G 236 gram-22.7 4 gram-6.74 gram-5.86 gram oral solution 04/28 completed Not Available Not Available Not Available Cosopt (PF) 2 %-0.5 % eye drops in a dropperet te INSTILL 1 DROP INTO AFFECTED EYE(S) BY OPHTHALM IC ROUTE 2 TIMES PER DAY 04/30 completed Not Available Not Available Not Available Eliquis 5 mg tablet TAKE ONE TABLET BY MOUTH TWICE A DAY 04/30 completed Not Available Not Available Not Available Eliquis 2.5 mg tablet TAKE ONE TABLET BY MOUTH TWICE A DAY active Not Available Not Available No t Available potassium chloride ER 20 mEq tablet,ex tended release Take 1 tablet every day by oral route for 7 days. 06/05 completed Not Available Not Available Not Available Fluzone High-Dose 5918-7221 (PF) 180 mcg/0.5 mL intramusc ular syringe 10/28 completed Not Available Not Available Not Available Shingrix (PF) 50 mcg/0.5 mL intramusc ular suspensio n kit VACCINAT ION ADMINIST ERED BY PHARMACI ST 01/18 completed Not Available Not Available Not Available Ramez DVT-PE Treatment 30-Day Starter 5 mg (74 tablets) in dose pack Take 2 tablets twice a day by oral route as directed for 28 days. 10/05 completed Not Available Not Available Not Available Fluad Quad (65yr up)(PF) 60 mcg (15 mcg x 4)/0.5mL IM syringe VACCINAT ION ADMINIST ERED BY PHARMACI ST 05/23 completed Not Available Not Available Not Available Vitals Date Recorded Body height Body mass index (BMI) Body weight Oxygen saturation Oxygen saturation in Arterial blood by Pulse oximetry Heart rate Body temperature Systolic blood pressure Diastolic blood pressure Provider Name and Address Organization Details Last Updated DateTime 4 177.17 cm 39.9 kg/m2 227069. 49 g 96 % 96 % 70 /min 98.1 [degF] 125 mm[Hg] 79 mm[Hg] Sophie Apple MA [facility] 4 08:51:51 Date Recorded Heart rate Systolic blood pressure Diastolic blood pressure Provider Name and Address Organization Details Last Updated DateTime 06/03/2024 55 /min 133 mm[Hg] 73 mm[Hg] Not Available [facility] 06/03/2024 14:38:03 Social History Question Answer Notes LastModified by Organizat ion Details LastModified Time Tobacco Smoking Status Never Smoker Not Available [facility] 04/25/2020 03:36:38 Do You Have An Advance Directive? Yes Information not available 05/21/2022 What Is Your Level Of Alcohol Consumption? Occasional [id number] Information not available 04/25/2020 Is Blood Transfusion Acceptable In An Emergency? Yes [id number] Information not available 04/25/2020 What Is Your Level Of Caffeine Consumption? Occasional 1 Cup Coffee Daily Information not available 11/15/2021 How Much Tobacco Do You Chew? None [id number] Information not available 04/25/2020 Are You Currently Employed? No [id number] Information not available 04/25/2020 Are You Deaf Or Do You Have Serious Difficulty Hearing? No Information not available 05/21/2022 What Type Of Diet Are You Following? REGULAR [id number] Information not available 04/25/2020 Which Illicit Or Recreational Drugs Have You Used? None [id number] Information not available 04/25/2020 Do You Or Have You Ever Used E-cigarettes Or Vape? Never Used Electronic Cigarettes Information not available 05/21/2022 What Is Your Occupation? Retired [email or web address] Information not available 03/20/2021 Live Alone Or With Others? With Others Information not available 11/20/2022 Do You Take Precautions To Prevent Distracted Driving? Yes Information not available 10/19/2015 How Often Do You Need To Have Someone Help You When You Read Instructions, Pamphlets, Or Other Written Material From Your Doctor Or Pharmacy? Never Information not available 10/19/2015 Have You Served In The ? No [email or web address] Information not available 10/21/2016 Have You Or Anyone In Your Household Had Any Of The Following Symptoms In The Last 14 Days: Sore Throat, Cough, Chills, Body Aches For Unknown Reasons, Shortness Of Breath For Unknown Reasons, Loss Of Smell, Loss Of Taste, Fever At Or Greater Than 100 Degrees Fahrenheit? No Information not available 01/19/2020 Are You Or Anyone In Your Household A Health Care Provider Or Emergency Responder? No [email or web address] Information not available 01/19/2020 To The Best Of Your Knowledge Have You Been In Close Proximity To Any Individual Who Tested Positive For COVID-19? No Information not available 01/19/2020 Have You Recently Traveled To A COVID-19 High Risk Area Or Gathering In The Last 10 Days? No [email or web address] Information not available 03/20/2021 What Was The Date Of Your Most Recent Tobacco Screening? 12/04/2023 [email or web address] Information not available 12/04/2023 How Many Children Do You Have? 2 Dc And 2 GC Information not available 11/20/2022 Difficulty Reading? No Information not available 05/21/2022 Do You Use Your Seat Belt Or Car Seat Routinely? Yes Information not available 11/15/2021 Seat Belts Used Routinely Yes Information not available 05/21/2022 Are You Sexually Active? No [id number] Information not available 04/25/2020 Smoke Alarm In Home Yes Information not available 05/21/2022 Do You Have Smoke And Carbon Monoxide Detectors In Your Home? No Information not available 11/15/2021 At What Age Did You Start Smoking Tobacco? 1 [id number] Information not available 04/25/2020 Are You Passively Exposed To Smoke? No [email or web address] Information not available 11/25/2016 Do You Or Have You Ever Used Smokeless Tobacco? Never Used Smokeless Tobacco [email or web address] Information not available 05/23/2020 How Much Tobacco Do You Smoke? No [id number] Information not available 04/25/2020 Do You Use Any Illicit Or Recreational Drugs? No Information not available 05/21/2022 Do You Use Sunscreen Routinely? Yes [id number] Information not available 04/25/2020 How Many Years Have You Smoked Tobacco? 0 [id number] Information not available 04/25/2020 Difficulty Watching TV? No Information not available 05/21/2022 Do You Or Have You Ever Used Any Other Forms Of Tobacco Or Nicotine? No Information not available 05/21/2022 Sex: Unknown Functional Status Question Answer Note LastModified by Organizat ion Details LastModified Time Do you have difficulty walking or climbing stairs? No Information not available 05/21/2022 Difficulty driving at night? No Information no t available 05/21/2022 Are you able to walk? [email or web address] Information not available 05/21/2022 Do you have difficulty doing errands alone? No Information not available 05/21/2022 Are you able to care for yourself? Yes [id number] Information not available 04/25/2020 Do you have difficulty dressing or bathing? No Information not available 05/21/2022 What is your exercise level? Occasional [id number] Information not available 04/25/2020 Mental Status Question Answer Note LastModified by Organization D etails LastModified Time Do you have difficulty concentrating, remembering or making decisions? No Information no t available 05/21/2022 Family History Relationship Description Onset Age of this Age Resolved Age Notes LastModified by Organization Details LastModified Time Mother Malignant tumor of lung 76 [email or web address] Not available 10/18 09:36:08 Father Coronary arterioscler [email or web address] Not available 2021 10:27:10 Father Cerebrovascu lar accident 82 [email or web address] Not available 0 11/20/2022 09:55:14 Brother Cerebrovascu lar accident [email or web address] Not available 14:51:24 Notes:2 brothers and 2 siste rs. He's middle Medical History No medical history recorded. Immunizations Vaccine Type Date Status Note Provider Nam e and Address Organization Details Recorded Time Tdap 2 completed Not Available [facility] 01/04/2014 14:16:00 [facility] 4 [facility] 16:04:02 pneumococcal polysaccharide PPV23 5 completed Not Available [facility] 07/10/2019 02:21:41 zoster recombinant 0 [facility] 11/15/2021 09:35:18 Influenza, split virus, quadrivalent, preservative 0 completed [facility]/23/2020 09:03:54 COVID-19, mRNA, LNP-S, PF, 30 mcg/0.3 mL dose 1 completed Octavia Stevens [facility] 11/25/2022 16:03:08 COVID-19, mRNA, LNP-S, PF, 30 mcg/0.3 mL dose 1 completed Octavia Stevens null, [facility] 11/25/2022 16:03:08 COVID-19, mRNA, LNP-S, PF, 30 mcg/0.3 mL dose 1 [facility] 11/15/2021 09:35:19 Influenza, high-dose, quadrivalent, PF 2 completed Francy Murillo MA null, [facility] 11/20/2022 09:23:34 zoster recombinant 9 completed Octavia smallwood, [facility] 11/25/2022 16:03:08 Influenza, adjuvanted, quadrivalent, PF 0 completed Octavia smallwood, [facility] 11/25/2022 16:03:08 COVID-19, mRNA, LNP-S, bivalent, PF, 30 mcg/0.3 mL dose 2 completed Octavia smallwood, [facility] 11/25/2022 16:03:08 Influenza, high-dose, trivalent, PF 8 completed Octavia smallwood, [facility] 11/25/2022 16:03:09 Pneumococcal conjugate PCV 13 6 completed Not Available [facility] 07/10/2019 02:21:36 Influenza, high-dose, quadrivalent, PF 3 completed PHUONG Miramontes, [facility] 06/03/2023 13:30:21 RSV, recombinant, protein subunit RSVpreF, adjuvant reconstituted, 0.5 mL, PF 3 completed PHUONG Miramontes, [facility] 06/03/2023 13:30:22 COVID-19, mRNA, LNP-S, PF, loly-sucrose, 30 mcg/0.3 mL 3 completed PHUONG Miramontes, [facility] 06/03/2023 13:30:22 zoster live 9 completed PHUONG Miramontes, [facility] 06/03/2023 13:30:22 Influenza, high-dose, trivalent, PF 8 completed Not Available [facility] 07/10/2019 02:22:14 Influenza, high-dose, trivalent, PF 9 completed Not Available [facility] 07/10/2019 02:22:08 Influenza, high-dose, quadrivalent, PF 1 [facility] 03/20/2021 10:29:06 Td (adult), 2 Lf tetanus toxoid, preservative free, adsorbed 2 [facility]/15/2021 10:27:37 Past Encounters Encounter ID Performer Location Encounter Start Date Encounter Closed Date Diagnosis/Indication Diagnosis SNOMED-CT Code Diagnosis ICD10 Code Diagnosis Note [id number] Naren Cota MD Main Office [address] [facility] [place] MADRIGAL [id number] 06/03/2024 08:40:01 06/03/2024 09:19:37 Hypertensive renal disease 02770423 I12.9 Good control; continue current mgmt. No changes despite slightly high systolic according to [facility] over the last month but previous months were normal. Hyperlipidemia 60962368 E78.5 Last LDL was at goal. Continue current mgmt. Pulmonary embolism 81401 003 I26.99 He is currently on eliquis for a PE that started in August 2020. Hematologi st recommende d decreasing eliquis to 2.5 mg twice a day in February 2021 which he did. He will be on lifelong anticoagul ation because this was a unprovoked clot. His care was transferre d here. Health Concerns Section Related Observation LastModified by Organization Detai ls LastModified Time None Recorded Concern Status LastModified by Organization Details LastModified Time None Recorded Payers Encounter Date Sequence Insurance Name Policy Number Policy Chowdhury Covered Member ID Chowdhury Member ID Guarantor Name 06/03/2024 1 [employer] (MEDICARE REPLACEMENT PPO) [id number] 1 Venkatesh Bee [id number] Venkatesh Bee Notes Date Note Type Note Provider Name and Address Organization Details Recorded Time 4 text/html HyperlipidemiaReported bypatient.Notes:On meds and LDL at goal.Hypertension F/UReported bypatient.Associated Symptoms:no dizziness; no lightheadedness; no chest pain; no shortness of breath; no palpitations; no edema; no calf pain with exertion Lifestyle:regular exercise; limiting/avoiding salt Medications:taking medications as directed; no side effects from medicationNotes:He lost 7 lbs over the last 6 months.His [facility] average over the last month was 148/83 but the previous months were all normal. He denies any changes in food/drink and has been c/w his meds. He had an unprovoked PE in 2020 and has been kept on anticoagulation because of this. His care was transferred here from hematology. He will continue on lifelong eliquis. Naren Cota MD [address] [address], [place], [address], [facility] [place] 09:22:44
== END 2024-07-13 09:35 | disposition home or self-care (01) ==
PROVIDERS: PCP Internal Medicine; Visit Provider Urology
DX: C61 Malignant neoplasm of prostate (principal); E29.1 Testicular hypofunction; M85.80 Other specified disorders of bone density and structure, unspecified site
CPT/HCPCS: 99214; G2211

== ENCOUNTER → 2024-07-13 09:06 | Outpatient (BNVA) | payer MEDICARE, SELFPAY | PROVIDERS: PCP Internal Medicine; Visit Provider Urology | DX: C61 Malignant neoplasm of prostate (principal); N52.9 Male erectile dysfunction, unspecified; E29.1 Testicular hypofunction; M85.80 Other specified disorders of bone density and structure, unspecified site | CPT/HCPCS: 99212 ==